=== PATIENT | female | born 1940 | race Caucasian/White ===

== ENCOUNTER → 2017-06-02 | Outpatient (CLI) | payer OTHER, MEDICARE | LOC: RAD 13:20 | DX: R06.00 Dyspnea, unspecified (principal) ==

== ENCOUNTER → 2017-06-12 | Outpatient (CLI) | payer OTHER, MEDICARE | LOC: CAT 10:39 | DX: R91.1 Solitary pulmonary nodule (principal) ==

== ENCOUNTER → 2017-09-15 | Outpatient (CLI) | payer OTHER, MEDICARE | LOC: CAT 10:37 | DX: R91.1 Solitary pulmonary nodule (principal); J98.11 Atelectasis; J98.4 Other disorders of lung; D17.79 Benign lipomatous neoplasm of other sites ==

== ENCOUNTER → 2018-02-02 | Outpatient (CLI) | payer OTHER, MEDICARE | LOC: CAT 13:54 | DX: R91.1 Solitary pulmonary nodule (principal); J98.11 Atelectasis; I25.10 Atherosclerotic heart disease of native coronary artery without angina pectoris ==